=== PATIENT | female | born 1975 | race Hispanic/Latino ===

== ENCOUNTER 2018-01-21 12:29 | Emergency (ER) | payer SELFPAY ==
[~2018-01-21] VITALS: Ht 142.2 cm; Wt 57.0 kg
[2018-01-21] MEDS ORDERED: PRILOSEC20 MG PO (13:09)
[2018-01-21 13:33] LABS: URINE BILIRUBIN - DIPSTICK NEGATIVE (NEGATIVE); URINE BLOOD DIPSTICK NEGATIVE (NEGATIVE); URINE COLOR YELLOW; URINE GLUCOSE - DIPSTICK NEGATIVE (NEGATIVE); URINE KETONE NEGATIVE (NEGATIVE); URINE LEUK ESTERASE NEGATIVE (NEGATIVE); URINE NITRITE - DIPSTICK NEGATIVE (Negative); URINE PH 7.5 (4.5-8.0); URINE PROTEIN - DIPSTICK NEGATIVE (NEG-TRACE); URINE SPECIFIC GRAVITY <=1.005; URINE UROBILINOGEN - DIPSTICK 0.2 E.U./dL (0.2)
[2018-01-21 13:34] LABS: URINE CLARITY CLEAR
[2018-01-21 13:34] LABS: IMMATURE GRANULOCYTES 0.2 % (0.0-5.0); MEAN CELL VOLUME 82.3 fL CALC (80.0-100.0); MEAN CORPUSCULAR HGB 26.3 pG CALC (26.0-32.0); NEUT# 2.49 thou/uL (2.00-7.15); RED BLOOD COUNT 4.52 mill/uL (4.20-5.60); RED CELL DISTRI WIDTH 14.3 % (11.5-15.5)
[2018-01-21 13:36] LABS: HEMATOCRIT 37.2 % (37.0-47.0); HEMOGLOBIN 11.9 g/dl (12.0-16.0)
[2018-01-21 13:57] LABS: BILIRUBIN, TOTAL 0.3 mg/dL (0.0-1.4); BUN 8 mg/dL (7-17); BUN/CREATININE RATIO 15 (12-20 (CALC)); CARBON DIOXIDE 25 mmol/l (22-30); CHLORIDE 106 mmol/l (95-108); CREATININE 0.6 mg/dL (0.5-1.0); GFR > 60 ML/MIN (>=60 (CALC)); GFR FOR AFR.AMER. > 60 ML/MIN (>=60 (CALC)); POTASSIUM 3.9 mmol/l (3.5-5.1); SGOT/AST 31 u/l (14-36); SGPT/ALT 36 u/l (9-52); TOTAL PROTEIN 8.3 g/dL (6.3-8.2)
[2018-01-21 14:07] LABS: ALBUMIN 4.5 g/dL (3.2-5.0); ALKALINE PHOSPHATASE 65 u/l (38-126); ANION GAP 15 (6-22 (CALC)); SODIUM 142 mmol/l (137-146)
[2018-01-21] MEDS ORDERED: ANUCORT-HC25 MG RE (16:36)
[2018-01-21 17:00] VITALS: BP 103/61
== END 2018-01-21 17:00 | disposition home or self-care (01) | DRG 379 ==
LOC: ED 12:29
PROVIDERS: Emergency Medicine
DX: K62.5 Hemorrhage of anus and rectum (principal); R51 Headache; R07.89 Other chest pain
CPT/HCPCS: Q9967

== ENCOUNTER 2018-04-17 05:16 | Emergency (ER) | payer SELFPAY ==
[~2018-04-17] VITALS: Ht 142.2 cm; Wt 56.3 kg
[~2018-04-17 05:16] MED LIST: ANUCORT-HC25 MG RE; PRILOSEC20 MG PO
[2018-04-17] MEDS ORDERED: TAM75CAP PO (05:38)
[2018-04-17 06:10] VITALS: BP 109/63
== END 2018-04-17 06:10 | disposition home or self-care (01) | DRG 951 ==
LOC: ED 05:16
DX: Z20.828 Contact with and (suspected) exposure to other viral communicable diseases (principal); R50.9 Fever, unspecified; R51 Headache; R05 Cough; M79.10 Myalgia, unspecified site

== ENCOUNTER 2018-12-19 09:14 | Day surgery (SDC) | payer SELFPAY ==
[~2018-12-19] VITALS: Ht 142.2 cm; Wt 59.0 kg
[~2018-12-19 09:14] MED LIST changes: +TAM75CAP PO
[2018-12-19 11:20] VITALS: BP 106/60
== END 2018-12-19 11:37 | disposition home or self-care (01) | DRG 392 ==
LOC: ENDO 09:14 → ORM 09:25 → ENDO 10:05 → ORM 10:15 → ENDO 10:35 → ORM 10:35 → ENDO 11:37
PROVIDERS: ATTEND Surgery
PROC: 0DJD8ZZ Inspection of Lower Intestinal Tract, Via Natural or Artificial Opening Endoscopic (ICD-10-PCS; principal; 2018-12-19)
PROC: 0DJ08ZZ Inspection of Upper Intestinal Tract, Via Natural or Artificial Opening Endoscopic (ICD-10-PCS; 2018-12-19)
DX: R10.13 Epigastric pain (principal); R10.32 Left lower quadrant pain; R14.0 Abdominal distension (gaseous); K59.00 Constipation, unspecified; K64.8 Other hemorrhoids

== ENCOUNTER 2019-07-31 | Emergency (ER) | payer SELFPAY ==
[2019-07-31 13:21] LABS: HEMATOCRIT 34.9 % (37.0-47.0); HEMOGLOBIN 11.2 g/dl (12.0-16.0); IMMATURE GRANULOCYTES 0.2 % (0.0-5.0); MEAN CELL VOLUME 79.1 fL CALC (80.0-100.0); MEAN CORPUSCULAR HGB 25.4 pG CALC (26.0-32.0); MEAN CORPUSCULAR HGB CONC 32.1 g/dL CAL (32.0-36.0); NEUT# 3.7 thou/uL (2.00-7.15); RED BLOOD COUNT 4.41 mill/uL (4.20-5.60); RED CELL DISTRI WIDTH 15.5 % (11.5-15.5)
[2019-07-31 13:42] LABS: ANION GAP 13 (6-22 (CALC)); BUN 15 mg/dL (7-17); BUN/CREATININE RATIO 24 (12-20 (CALC)); CARBON DIOXIDE 23 mmol/l (22-30); CHLORIDE 103 mmol/l (95-108); CREATININE 0.6 mg/dL (0.5-1.0); GFR > 60 ML/MIN (>=60 (CALC)); GFR FOR AFR.AMER. > 60 ML/MIN (>=60 (CALC)); POTASSIUM 3.7 mmol/l (3.5-5.1); SODIUM 137 mmol/l (137-146)
[2019-07-31] MEDS ORDERED: HYDROCO/APAP1 TA9 PO (16:20)
[2019-07-31] MEDS ORDERED: MOTRIN400 MG PO (18:31)
== END 2019-07-31 18:36 | disposition home or self-care (01) | DRG 563 ==
PROVIDERS: Family Medicine
PROC: 0SSGXZZ Reposition Left Ankle Joint, External Approach (ICD-10-PCS; principal; 2019-07-31)
DX: S82.52XA Displaced fracture of medial malleolus of left tibia, initial encounter for closed fracture (principal); S82.832A Other fracture of upper and lower end of left fibula, initial encounter for closed fracture; W10.9XXA Fall (on) (from) unspecified stairs and steps, initial encounter

== ENCOUNTER 2019-08-14 | Day surgery (SDC) | payer SELFPAY ==
[~2019-08-14] MED LIST changes: +HYDROCO/APAP1 TA9 PO; +MOTRIN400 MG PO
[2019-08-14 07:19] LABS: HCG SERUM/URINE (NEG/POS) NEGATIVE (NEGATIVE)
== END 2019-08-14 14:00 | disposition home or self-care (01) | DRG 494 ==
PROVIDERS: Surgery
PROC: 0QSH04Z Reposition Left Tibia with Internal Fixation Device, Open Approach (ICD-10-PCS; principal; 2019-08-14)
PROC: 0SSG04Z Reposition Left Ankle Joint with Internal Fixation Device, Open Approach (ICD-10-PCS; 2019-08-14)
PROC: 0MQR0ZZ Repair Left Ankle Bursa and Ligament, Open Approach (ICD-10-PCS; 2019-08-14)
DX: S82.872A Displaced pilon fracture of left tibia, initial encounter for closed fracture (principal); S93.432A Sprain of tibiofibular ligament of left ankle, initial encounter; S93.422A Sprain of deltoid ligament of left ankle, initial encounter; S82.442A Displaced spiral fracture of shaft of left fibula, initial encounter for closed fracture; W10.9XXA Fall (on) (from) unspecified stairs and steps, initial encounter; Y92.009 Unspecified place in unspecified non-institutional (private) residence as the place of occurrence of the external cause
CPT/HCPCS: C1713; J2710